=== PATIENT | male | born 1940 | race Caucasian/White ===

== ENCOUNTER 2017-07-01 01:06 | Inpatient (IN) | payer MEDICARE, OTHER ==
[~2017-07-01] VITALS: Ht 172.7 cm; Wt 88.5 kg
[~2017-07-01 01:06] MED LIST: ALBU0.63 NEB; AMIT75TA PO; ASPI-515 PO; BENZ200C48 PO; CHOL10003 PO; CLOP75TA PO; CYAN100074 PO; DOCU100C24 PO; DONE10TA7 PO; DOXY100C2 PO; FURO-93 PO; FURO20TA3 PO; ISOS20TA3 PO; LIDOCAINE 4%; LISI-170 PO; LISI5TAB7 PO; METO200T5 PO; METO25TA35 PO; NITR0.4T SL; POTA10TA11 PO; PRED5TAB PO; SENN-99 PO; SIMV10TA3 PO; SPIR25TA3 PO; [UNRECOGNIZED DRUG - CODE] EACHEYE
[2017-07-01] MEDS: METOPROLOL TARTRATE 25 MG TABLET PO SCH ×4 (01:30→19:34)
[2017-07-01] MEDS ORDERED: NITROGLYCERIN 0.4 MG BOTTLE (25 TABS) SL PRN (01:30)
[2017-07-01] MEDS: CEFTRIAXONE PMX 1GM/50ML 50 ML IVPB SCH ×2 (01:30→22:01)
[2017-07-01] MEDS ORDERED: ONDANSETRON 2MG/ML, 2ML IV PRN (01:30)
[2017-07-01] MEDS ORDERED: ZOLPIDEM 5MG TABLET PO PRN (01:30)
[2017-07-01] MEDS ORDERED: PHARMACY MAY ADJ FOR RENAL FX MC PRN (01:30)
[2017-07-01 01:49] VITALS: BP 99/73
[2017-07-01] MEDS: AZITHROMYCIN 500 MG in SODIUM CHLORIDE 0.9% 250 ML IV SCH ×2 (02:00→23:14)
[2017-07-01 02:26] VITALS: BP_SYST 82; BP_SYST 83; BP_DIAS 52; BP_DIAS 55
[2017-07-01 02:46] LABS: IS PT STATUS REG ER OR PRE ER? NO
[2017-07-01 07:34] LABS: IS PT STATUS REG ER OR PRE ER? NO
[2017-07-01 08:32] VITALS: BP 109/62
[2017-07-01] MEDS: SPIRONOLACTONE 25 MG TABLET PO SCH (09:00)
[2017-07-01] MEDS ORDERED: DIGOXIN 0.25 MG/ML, 2ML IVPush ONE (09:00)
[2017-07-01] MEDS ORDERED: SENNOSIDES 8.6 MG TABLET PO PRN (09:00)
[2017-07-01] MEDS ORDERED: LISINOPRIL 5 MG TABLET PO SCH (09:00)
[2017-07-01] MEDS: SODIUM CHLORIDE FLUSH 10ML SYR IVF SCH ×2 (10:13→20:59)
[2017-07-01] MEDS: CHOLECALCIFEROL 1,000 UNIT TABLET PO SCH (10:16)
[2017-07-01] MEDS: POTASSIUM CHLORIDE 10 MEQ TABLET.ER PO SCH (10:17)
[2017-07-01] MEDS: ENOXAPARIN 80 MG/0.8 ML SQ SCH ×2 (10:17→20:58)
[2017-07-01] MEDS: ASPIRIN 81 MG TABLET EC PO SCH (10:17)
[2017-07-01] MEDS: ISOSORBIDE MONONITRATE ER 30 MG TABLET PO SCH (10:17)
[2017-07-01] MEDS: FUROSEMIDE 20 MG/2 ML IVPush SCH ×2 (10:18→20:58)
[2017-07-01 13:35] LABS: IS PT STATUS REG ER OR PRE ER? NO
[2017-07-01] MEDS: ALBUTEROL SULFATE 2.5 MG/3 ML NPPB PRN (14:00)
[2017-07-01 14:32] VITALS: BP 103/69
[2017-07-01 19:33] VITALS: BP 99/68
[2017-07-01 20:58] VITALS: BP 101/60
[2017-07-01] MEDS: SIMVASTATIN 10 MG TABLET PO SCH (20:58)
[2017-07-02] VITALS (7 sets, daily range): BP systolic 102–138; BP diastolic 68–103
[2017-07-02] MEDS: ALBUTEROL SULFATE 2.5 MG/3 ML NPPB PRN ×2 (00:03→21:41)
[2017-07-02] MEDS: BENZONATATE 100 MG CAPSULE PO PRN ×2 (00:08→21:07)
[2017-07-02] MEDS: METOPROLOL TARTRATE 25 MG TABLET PO SCH ×4 (01:44→20:20)
[2017-07-02 05:55] LABS: HEMATOCRIT 34.9 % (39.2-51.8); HEMOGLOBIN 11.5 g/dL (13.7-18.0); WHITE BLOOD COUNT 16.1 x10^3/uL (3.4-10)
[2017-07-02 06:27] LABS: BLOOD UREA NITROGEN 44 mg/dL (7-18)
[2017-07-02] MEDS: SODIUM CHLORIDE FLUSH 10ML SYR IVF SCH ×2 (09:00→20:20)
[2017-07-02] MEDS: FUROSEMIDE 20 MG/2 ML IVPush SCH (09:00)
[2017-07-02] MEDS: POTASSIUM CHLORIDE 10 MEQ TABLET.ER PO SCH (09:28)
[2017-07-02] MEDS: CHOLECALCIFEROL 1,000 UNIT TABLET PO SCH (09:28)
[2017-07-02] MEDS: ISOSORBIDE MONONITRATE ER 30 MG TABLET PO SCH (09:29)
[2017-07-02] MEDS: SPIRONOLACTONE 25 MG TABLET PO SCH (09:29)
[2017-07-02] MEDS: ASPIRIN 81 MG TABLET EC PO SCH (09:29)
[2017-07-02] MEDS ORDERED: HEPARIN 5,000 UNITS/ML, 1ML SQ SCH (09:30)
[2017-07-02] MEDS ORDERED: HEPARIN 25,000 UNITS/500ML PMX 500 ML IV PRN (10:00)
[2017-07-02] MEDS ORDERED: HEPARIN 5,000 UNITS/ML, 1ML IV ONE (10:00)
[2017-07-02] MEDS: SIMVASTATIN 10 MG TABLET PO SCH (20:20)
[2017-07-02] MEDS: CEFTRIAXONE PMX 1GM/50ML 50 ML IVPB SCH (22:29)
[2017-07-03] VITALS (10 sets, daily range): BP systolic 71–126; BP diastolic 30–74
[2017-07-03] MEDS: AZITHROMYCIN 500 MG in SODIUM CHLORIDE 0.9% 250 ML IV SCH (00:05)
[2017-07-03] MEDS: HEPARIN 5,000 UNITS/ML, 1ML IV PRN ×2 (00:07→07:39)
[2017-07-03 01:44] LABS: ABG COLLECTION SITE RIGHT RADIAL; COLLATERAL CIRCULATION TESTING NORMAL
[2017-07-03] MEDS: METOPROLOL TARTRATE 25 MG TABLET PO SCH ×3 (02:00→14:00)
[2017-07-03 06:33] LABS: HEMATOCRIT 36.5 % (39.2-51.8); HEMOGLOBIN 11.9 g/dL (13.7-18.0); WHITE BLOOD COUNT 11.9 x10^3/uL (3.4-10)
[2017-07-03 06:39] LABS: BLOOD UREA NITROGEN 62 mg/dL (7-18)
[2017-07-03] MEDS: SODIUM CHLORIDE FLUSH 10ML SYR IVF SCH (09:00)
[2017-07-03] MEDS: ISOSORBIDE MONONITRATE ER 30 MG TABLET PO SCH (09:00)
[2017-07-03] MEDS ORDERED: CEFD300C37 PO (09:46)
[2017-07-03] MEDS ORDERED: AZIT250T PO (09:46)
[2017-07-03] MEDS ORDERED: METO25TA91 PO (09:46)
[2017-07-03] MEDS: POTASSIUM CHLORIDE 10 MEQ TABLET.ER PO SCH (09:56)
[2017-07-03] MEDS: CHOLECALCIFEROL 1,000 UNIT TABLET PO SCH (09:56)
[2017-07-03] MEDS: BENZONATATE 100 MG CAPSULE PO PRN (09:56)
[2017-07-03] MEDS: ASPIRIN 81 MG TABLET EC PO SCH (09:57)
[2017-07-03] MEDS ORDERED: morphine SULFATE 10 MG/ML, 1ML ONE (14:26)
[2017-07-03] MEDS ORDERED: MORPHINE SULFATE 4 MG/ML, 1ML IVPush PRN (14:30)
== END 2017-07-03 16:10 | disposition hospice, home (50) | DRG 291 ==
LOC: 4WST 01:08
PROVIDERS: ADMIT Internal Medicine; ATTEND Internal Medicine
DX: I13.0 Hypertensive heart and chronic kidney disease with heart failure and stage 1 through stage 4 chronic kidney disease, or unspecified chronic kidney disease (principal); J18.9 Pneumonia, unspecified organism; I95.9 Hypotension, unspecified; E87.5 Hyperkalemia; N18.4 Chronic kidney disease, stage 4 (severe); N17.9 Acute kidney failure, unspecified; I48.91 Unspecified atrial fibrillation; J44.0 Chronic obstructive pulmonary disease with (acute) lower respiratory infection; I07.1 Rheumatic tricuspid insufficiency; Z99.81 Dependence on supplemental oxygen; I50.43 Acute on chronic combined systolic (congestive) and diastolic (congestive) heart failure; I25.5 Ischemic cardiomyopathy; I50.84 End stage heart failure; E78.5 Hyperlipidemia, unspecified; F17.200 Nicotine dependence, unspecified, uncomplicated; I25.10 Atherosclerotic heart disease of native coronary artery without angina pectoris; Z66 Do not resuscitate; Z51.5 Encounter for palliative care; B19.20 Unspecified viral hepatitis C without hepatic coma; I34.0 Nonrheumatic mitral (valve) insufficiency
CPT/HCPCS: 36415; 36600; 71010; 76770; 80048; 82803; 83735; 84132; 84443; 84484; 85025; 85520; 87070; 87205; 93005; 93306; 94640; J0456; J0696; J1644; J1650; J7613; J1160; J1940; J7050

== ENCOUNTER 2020-04-16 08:52 | Inpatient (IN) | payer OTHER ==
[~2020-04-16] VITALS: Ht 174 cm; Wt 70.1 kg
[~2020-04-16 08:52] MED LIST changes: +ALBUTEROL INH; +APIX5TAB PO; +ATOR40TA78 PO; +ATROPINE 1% EACHEYE; +AZIT250T PO; +CALA118S2 TP; +CAPSAICIN 0.025% TP; +CEFD300C37 PO; +DICL100G25 TP; +DIGO250T3 PO; +DOCU-193 PO; -DOCU100C24 PO; +DOXY100T PO; +FLUT1DIS3 INH; +FURO40TA6 PO; +GABA300C10 PO; +GUAI200T37 PO; +IPRA3AMP30 NEB; +IPRATRO INH; +LIDO700A20 TD; +METO-93 PO; +METO200T47 PO; -METO200T5 PO; +METO25TA2 PO; +METO25TA91 PO; +NICO-485 TD; +NICO-486 TD; +NICO-487 TD; +NICO4GUM40 PO; -NITR0.4T SL; +NITR0.4T41 SL; +POTA10TA5 PO; +PRED10TA PO; +SIMV10TA18 PO; -SIMV10TA3 PO; -SPIR25TA3 PO; +SPIR25TA5 PO; +TIOT18CA INH
--- NOTE | 2020-04-16 08:59 | NUR ---
BIB [facility] FOR SOB, RAN OUT OF OXYGEN (normally on 2L NC) @0300 AND DOES NOT HAVE NEBULIZER CURRENTLY. PT 96% ON RA. GIVEN ALBUTEROL/DUONEB BY EMS. HR 120-140'S HX AFIB, COPD, CHF. PT PLACED ON MONITOR, EKG DONE. CALL LIGHT WITHIN REACH. PT IN NO DISTRESS AT THIS TIME.
[2020-04-16] MEDS ORDERED: DILTIAZEM 125 MG in SODIUM CHLORIDE 0.9% 100 ML IV SCH (09:04)
[2020-04-16] MEDS ORDERED: DILTIAZEM 5 MG/ML, 5ML ONE (09:16)
[2020-04-16] MEDS ORDERED: SODIUM CHLORIDE FLUSH 10ML SYR IVF ONE (09:30)
[2020-04-16] MEDS ORDERED: DILTIAZEM 5 MG/ML, 5ML IV ONE (09:30)
--- NOTE | 2020-04-16 09:35 | NUR ---
PT RESTING IN GURNEY, STATES FEELS LESS SOB AFTER MEDICATION AND HR DECREASE. CARDIZEM GTT INFUSING @10MG/H. PT ON MONITOR, CALL LIGHT WITHIN REACH.
[2020-04-16 10:12] LABS: ALBUMIN 3.4 g/dL (3.4-5.0); CALCIUM 8.8 mg/dL (8.5-10.1); CHLORIDE 111 mmol/L (98-107)
[2020-04-16 10:16] LABS: TROPONIN I 0.086 ng/mL (0.000-0.045)
[2020-04-16 10:20] LABS: ANION GAP 3 mmol/L (5-15)
[2020-04-16 10:32] LABS: BASOPHILS # (AUTO) 0.03 x10^3/uL (0-0.1); BASOPHILS % (AUTO) 0 % (0-1); EOSINOPHILS # (AUTO) 0.12 x10^3/uL (0-0.4); EOSINOPHILS % (AUTO) 2 % (1-7); LYMPHOCYTES # (AUTO) 1.35 x10^3/uL (1-3.4); LYMPHOCYTES % (AUTO) 17 % (22-44); MD SCAN; MEAN CORPUSCULAR HEMOGLOBIN 29.6 pg (27.5-34.5); MEAN CORPUSCULAR HGB CONC 32.7 g/dL (33.2-36.2); MEAN CORPUSCULAR VOLUME 90.5 fL (81-97); MEAN PLATELET VOLUME 8.9 fL (7.4-10.4); MONOCYTES # (AUTO) 0.72 x10^3/uL (0.2-0.8); MONOCYTES % (AUTO) 9 % (2-9); NEUTROPHILS # (AUTO) 5.66 x10^3/uL (1.8-6.8); NEUTROPHILS % (AUTO) 72 % (42-75); PLATELET COUNT 148 x10^3/uL (130-400); RED BLOOD COUNT 4.17 x10^6/uL (4.38-5.82); RED CELL DISTRIBUTION WIDTH 15.8 % (9.4-14.8)
--- NOTE | 2020-04-16 10:35 | NUR ---
NOTIFIED OF PT'S HR 99-124, DILTIAZEM GTT INCREASED
[2020-04-16] MEDS ORDERED: SODIUM CHLORIDE FLUSH 10ML SYR IVF PRN (11:00)
--- NOTE | 2020-04-16 11:24 | NUR ---
Note louis in EDM - 04/16/20 at 1125 by SERENA INSULIN PEN ORDERED FROM PHARMACY. DIET TRAY ORDERED. PT RESTING IN [facility] WITH CALL LIGHT WITHIN REACH. NO NEEDS AT THIS TIME. AWAITNIG BED ASSIGNMENT
--- NOTE | 2020-04-16 11:26 | NUR ---
DIET TRAY ORDERED. PT RESTING IN [facility] WITH CALL LIGHT WITHIN REACH. NO NEEDS AT THIS TIME. AWAITING BED ASSIGNMENT
--- NOTE | 2020-04-16 11:33 | NUR ---
NOTIFIED OF PTS BP, DILTIAZEM GTT DECREASED BACK TO 10MG/H
--- NOTE | 2020-04-16 12:52 | NUR ---
TASK RN, ASSISTING PRIMARY RN. MEAL TRAY DELIVERED. PT ASSISTED WITH REPOSITIONING AND PLACING OXYGEN VIA NC BACK IN PLACE. WARM BLANKET PROVIDED, CALL LIGHT WITHIN REACH. VSS/UPDATED IN COMPUTER
--- NOTE | 2020-04-16 13:55 | NUR ---
break RN note: pt given tissues to blow nose. pt is a&o, resps even and unlabored. rate 60-70s with no ectopy. diltiazem gtt infusing. nadn. awaiting cardiac tele bed assignment and transport.
--- NOTE | 2020-04-16 14:45 | NUR ---
REPORT GIVEN BACK TO PABLO KULKARNI WHO IS ASSUMING CARE.
[2020-04-16] MEDS ORDERED: POLYETHYLENE GLYCOL 17 GM PACKET PO PRN (15:30)
[2020-04-16] MEDS ORDERED: DOCUSATE 100 MG CAPSULE PO PRN (15:30)
[2020-04-16] MEDS ORDERED: BISACODYL 10 MG SUPP PR PRN (15:30)
[2020-04-16] MEDS ORDERED: morphine SULFATE 10 MG/ML, 1ML IVPush PRN (15:30)
[2020-04-16] MEDS ORDERED: ACETAMINOPHEN 325 MG TABLET PO PRN (15:30)
[2020-04-16] MEDS ORDERED: PHARMACY MAY ADJ FOR RENAL FX MC PRN (15:30)
--- NOTE | 2020-04-16 16:00 | NUR ---
PT RESTING IN [facility], MEDICATED PER NOV. PT AWAITNG BED ASSIGNMENT
[2020-04-16] MEDS ORDERED: BENZONATATE 100 MG CAPSULE ONE (16:02)
[2020-04-16] MEDS: BENZONATATE 100 MG CAPSULE PO SCH ×2 (16:04→21:00)
[2020-04-16 16:06] LABS: TROPONIN I 0.093 ng/mL (0.000-0.045)
--- NOTE | 2020-04-16 17:45 | NUR ---
REPORT TO ARIANA SHAH
[2020-04-16 18:13] VITALS: BP 110/80
[2020-04-16] MEDS ORDERED: ALBUTEROL HFA 90 MCG/SPRAY INH PRN (18:30)
[2020-04-16 19:50] VITALS: BP 110/73
[2020-04-16 20:51] LABS: MICROSCOPIC INDICATED
[2020-04-16] MEDS: ATORVASTATIN 40 MG TABLET PO SCH (21:00)
[2020-04-16] MEDS: APIXABAN 2.5 MG TABLET PO SCH (21:00)
[2020-04-16 21:54] LABS: TROPONIN I 0.088 ng/mL (0.000-0.045)
[2020-04-17 01:40] VITALS: BP 108/74
[2020-04-17] MEDS ORDERED: DILTIAZEM 5 MG/ML, 5ML IVPush PRN (04:30)
[2020-04-17 04:32] VITALS: BP 125/87
[2020-04-17 04:53] VITALS: BP 128/79
[2020-04-17 05:21] LABS: MEAN CORPUSCULAR HEMOGLOBIN 29.2 pg (27.5-34.5); MEAN CORPUSCULAR HGB CONC 31.9 g/dL (33.2-36.2); MEAN CORPUSCULAR VOLUME 91.8 fL (81-97); MEAN PLATELET VOLUME 9.1 fL (7.4-10.4); PLATELET COUNT 150 x10^3/uL (130-400); RED CELL DISTRIBUTION WIDTH 15.7 % (9.4-14.8)
[2020-04-17 05:26] LABS: ALBUMIN 3.3 g/dL (3.4-5.0); ANION GAP 4 mmol/L (5-15); CALCIUM 8.7 mg/dL (8.5-10.1); CHLORIDE 110 mmol/L (98-107)
[2020-04-17] MEDS ORDERED: FUROSEMIDE 20 MG/2 ML IV ONE (05:30)
[2020-04-17 05:38] LABS: ALANINE AMINOTRANSFERASE 24 U/L (12-78); ALKALINE PHOSPHATASE 99 U/L (45-117); BILIRUBIN,TOTAL 1.1 mg/dL (0.2-1.0); CREATININE 1.37 mg/dL (0.7-1.3); TOTAL PROTEIN 7.1 g/dL (6.4-8.2)
[2020-04-17 06:19] LABS: BASOPHILS # (AUTO) 0.05 x10^3/uL (0-0.1); BASOPHILS % (AUTO) 1 % (0-1); EOSINOPHILS % (AUTO) 1 % (1-7); LYMPHOCYTES # (AUTO) 1.03 x10^3/uL (1-3.4); LYMPHOCYTES % (AUTO) 10 % (22-44); MD SCAN; MONOCYTES % (AUTO) 8 % (2-9); NEUTROPHILS % (AUTO) 81 % (42-75)
[2020-04-17 06:50] VITALS: BP 129/89
[2020-04-17] MEDS ORDERED: METOPROLOL SUCCINATE 50 MG TAB.ER.24H PO SCH ×2 (08:00→11:30)
[2020-04-17] MEDS ORDERED: DIGOXIN 0.25 MG TABLET PO SCH (08:00)
[2020-04-17] MEDS: DIGOXIN 0.25 MG TABLET PO SCH (08:02)
[2020-04-17] MEDS: BENZONATATE 100 MG CAPSULE PO SCH ×3 (08:03→21:04)
[2020-04-17] MEDS: APIXABAN 2.5 MG TABLET PO SCH (08:03)
[2020-04-17] MEDS: FUROSEMIDE 40 MG/4 ML IV SCH ×2 (08:03→16:20)
[2020-04-17] MEDS ORDERED: DILTIAZEM 125 MG in SODIUM CHLORIDE 0.9% 100 ML IV SCH (09:04)
[2020-04-17] MEDS ORDERED: LISI2.5T PO (09:34)
[2020-04-17] MEDS ORDERED: GABA300C PO (09:34)
[2020-04-17] MEDS ORDERED: CARV3.12 PO (09:34)
[2020-04-17] MEDS ORDERED: MECO10005 PO (09:34)
[2020-04-17] MEDS ORDERED: MULT-257 PO (09:34)
[2020-04-17] MEDS ORDERED: ASPI-496 PO (09:34)
[2020-04-17] MEDS ORDERED: METOPROLOL SUCCINATE 50 MG TAB.ER.24H ONE (11:14)
[2020-04-17 12:43] VITALS: BP 113/86
[2020-04-17] MEDS ORDERED: ALBUTEROL SULFATE 2.5 MG/3 ML NPPB PRN (14:00)
[2020-04-17 19:52] VITALS: BP 99/86
[2020-04-17] MEDS ORDERED: BUDESONIDE 0.5 MG/2 ML INHA NPPB SCH (21:00)
[2020-04-17] MEDS: APIXABAN 5 MG TABLET PO SCH (21:04)
[2020-04-17] MEDS: ATORVASTATIN 40 MG TABLET PO SCH (21:04)
[2020-04-18] VITALS (7 sets, daily range): BP systolic 92–126; BP diastolic 26–72
[2020-04-18 05:54] LABS: ANION GAP 4 mmol/L (5-15); CALCIUM 8.2 mg/dL (8.5-10.1); CHLORIDE 104 mmol/L (98-107)
[2020-04-18 05:55] LABS: CREATININE 1.41 mg/dL (0.7-1.3)
[2020-04-18 06:23] LABS: MEAN CORPUSCULAR HEMOGLOBIN 29.3 pg (27.5-34.5); MEAN CORPUSCULAR HGB CONC 32.2 g/dL (33.2-36.2); MEAN PLATELET VOLUME 9.3 fL (7.4-10.4); PLATELET COUNT 144 x10^3/uL (130-400); RED BLOOD COUNT 4.62 x10^6/uL (4.38-5.82); RED CELL DISTRIBUTION WIDTH 15.5 % (9.4-14.8)
[2020-04-18 06:36] LABS: MD SCAN
[2020-04-18 06:37] LABS: BASOPHILS # (AUTO) 0.04 x10^3/uL (0-0.1); BASOPHILS % (AUTO) 0 % (0-1); EOSINOPHILS # (AUTO) 0.11 x10^3/uL (0-0.4); EOSINOPHILS % (AUTO) 1 % (1-7); LYMPHOCYTES # (AUTO) 1.55 x10^3/uL (1-3.4); LYMPHOCYTES % (AUTO) 16 % (22-44); MONOCYTES # (AUTO) 1.09 x10^3/uL (0.2-0.8); MONOCYTES % (AUTO) 11 % (2-9); NEUTROPHILS # (AUTO) 7.11 x10^3/uL (1.8-6.8); NEUTROPHILS % (AUTO) 72 % (42-75)
[2020-04-18] MEDS: BENZONATATE 100 MG CAPSULE PO SCH ×3 (09:19→20:17)
[2020-04-18] MEDS: ASPIRIN 81 MG TABLET EC PO SCH (09:19)
[2020-04-18] MEDS: SPIRONOLACTONE 25 MG TABLET PO SCH (09:19)
[2020-04-18] MEDS: FUROSEMIDE 40 MG/4 ML IV SCH ×2 (09:19→14:14)
[2020-04-18] MEDS: LISINOPRIL 5 MG TABLET PO SCH (09:20)
[2020-04-18] MEDS: DIGOXIN 0.25 MG TABLET PO SCH (09:20)
[2020-04-18] MEDS: METOPROLOL SUCCINATE 100 MG TAB.ER.24H PO SCH (09:20)
[2020-04-18] MEDS: APIXABAN 5 MG TABLET PO SCH ×2 (09:20→20:17)
[2020-04-18] MEDS: FLUTICASONE/VILANTEROL 200-25MCG/INH INH SCH (09:21)
[2020-04-18] MEDS: TIOTROPIUM BROMIDE 18 MCG/INH INH SCH (09:21)
[2020-04-18] MEDS: ATORVASTATIN 40 MG TABLET PO SCH (20:17)
[2020-04-19 01:28] VITALS: BP 93/53
[2020-04-19 01:35] VITALS: BP 113/72
[2020-04-19 04:35] VITALS: BP 121/70
[2020-04-19 04:52] LABS: BASOPHILS # (AUTO) 0.05 x10^3/uL (0-0.1); BASOPHILS % (AUTO) 1 % (0-1); EOSINOPHILS # (AUTO) 0.17 x10^3/uL (0-0.4); EOSINOPHILS % (AUTO) 2 % (1-7); LYMPHOCYTES # (AUTO) 1.76 x10^3/uL (1-3.4); LYMPHOCYTES % (AUTO) 20 % (22-44); MD NO; MEAN CORPUSCULAR HGB CONC 31.7 g/dL (33.2-36.2); MEAN CORPUSCULAR VOLUME 91.3 fL (81-97); MONOCYTES # (AUTO) 1.05 x10^3/uL (0.2-0.8); MONOCYTES % (AUTO) 12 % (2-9); NEUTROPHILS # (AUTO) 6.01 x10^3/uL (1.8-6.8); NEUTROPHILS % (AUTO) 66 % (42-75); PLATELET COUNT 156 x10^3/uL (130-400); RED CELL DISTRIBUTION WIDTH 15.3 % (9.4-14.8)
[2020-04-19 04:58] LABS: ANION GAP 3 mmol/L (5-15); CALCIUM 8.2 mg/dL (8.5-10.1); CHLORIDE 103 mmol/L (98-107)
[2020-04-19 05:00] LABS: CREATININE 1.53 mg/dL (0.7-1.3)
[2020-04-19 07:30] VITALS: BP 100/50
[2020-04-19] MEDS ORDERED: REGADENOSON 0.4 MG/5 ML SYRINGE ONE (08:27)
[2020-04-19] MEDS: APIXABAN 5 MG TABLET PO SCH ×2 (09:12→20:21)
[2020-04-19] MEDS: BENZONATATE 100 MG CAPSULE PO SCH ×3 (09:12→20:21)
[2020-04-19] MEDS: ASPIRIN 81 MG TABLET EC PO SCH (09:12)
[2020-04-19] MEDS: METOPROLOL SUCCINATE 100 MG TAB.ER.24H PO SCH (09:12)
[2020-04-19] MEDS: SPIRONOLACTONE 25 MG TABLET PO SCH (09:12)
[2020-04-19] MEDS: DIGOXIN 0.25 MG TABLET PO SCH (09:12)
[2020-04-19] MEDS: LISINOPRIL 5 MG TABLET PO SCH (09:13)
[2020-04-19] MEDS: FLUTICASONE/VILANTEROL 200-25MCG/INH INH SCH (10:00)
[2020-04-19] MEDS: TIOTROPIUM BROMIDE 18 MCG/INH INH SCH (10:00)
[2020-04-19 15:20] VITALS: BP 145/78
[2020-04-19] MEDS ORDERED: METO-95 PO (17:26)
[2020-04-19] MEDS: ATORVASTATIN 40 MG TABLET PO SCH (20:21)
== END 2020-04-19 20:45 | disposition home health service (06) | DRG 291 ==
LOC: ED 09:08 → EDIP 10:48 → 5SO 18:07
PROVIDERS: ADMIT Family Medicine; ATTEND Family Medicine
DX: I13.0 Hypertensive heart and chronic kidney disease with heart failure and stage 1 through stage 4 chronic kidney disease, or unspecified chronic kidney disease (principal); J96.21 Acute and chronic respiratory failure with hypoxia; I50.43 Acute on chronic combined systolic (congestive) and diastolic (congestive) heart failure; J44.1 Chronic obstructive pulmonary disease with (acute) exacerbation; D68.69 Other thrombophilia; I47.2 Ventricular tachycardia; I48.20 Chronic atrial fibrillation, unspecified; I48.0 Paroxysmal atrial fibrillation; I95.9 Hypotension, unspecified; N18.3 Chronic kidney disease, stage 3 (moderate); I34.0 Nonrheumatic mitral (valve) insufficiency; I25.10 Atherosclerotic heart disease of native coronary artery without angina pectoris; B19.20 Unspecified viral hepatitis C without hepatic coma; E78.5 Hyperlipidemia, unspecified; F03.90 Unspecified dementia, unspecified severity, without behavioral disturbance, psychotic disturbance, mood disturbance, and anxiety; F17.200 Nicotine dependence, unspecified, uncomplicated; I42.9 Cardiomyopathy, unspecified; M17.11 Unilateral primary osteoarthritis, right knee; Z66 Do not resuscitate; Z99.81 Dependence on supplemental oxygen; I25.2 Old myocardial infarction; Z86.73 Personal history of transient ischemic attack (TIA), and cerebral infarction without residual deficits; Z91.02 Food additives allergy status
CPT/HCPCS: 36415; 71045; 78452; 80048; 80053; 80162; 81001; 82040; 83735; 83880; 84100; 84145; 84443; 84484; 85025; 93005; 93017; 93306; 93970; 96374; 96375; 99291; G0378; J1940; J2785; A9502